=== PATIENT | male | born 1975 | race Caucasian/White ===

== ENCOUNTER 2017-11-17 23:02 | Emergency (ER) | payer BC ==
[~2017-11-17] VITALS: Ht 185.4 cm; Wt 172.2 kg
[2017-11-17 23:08] VITALS: BP 152/103
[2017-11-17] MEDS ORDERED: OMEP40CA37 (23:31)
[2017-11-17] MEDS ORDERED: LOSA50TA37 (23:31)
[2017-11-17] MEDS ORDERED: mag hydrox/Alum hydrox/simeth 30ml oral suspension PO ONE (23:40)
[2017-11-17] MEDS ORDERED: ondansetron 4mg rapidly disintigrating tab PO ONE (23:40)
[2017-11-18 00:39] LABS: BASOPHILS # (AUTO) 0.1 X10'3 (0-0.2); BASOPHILS % (AUTO) 0.8 % (0-1); EOSINOPHILS # (AUTO) 0.2 X10'3 (0-0.9); EOSINOPHILS % (AUTO) 1.9 % (0-6); HEMATOCRIT 42.3 % (42.0-52.0); HEMOGLOBIN 14.4 g/dl (14.0-17.9); LYMPHOCYTES # (AUTO) 2.1 X10'3 (1.1-4.8); LYMPHOCYTES % (AUTO) 24.2 % (21-51); MEAN CORPUSCULAR HEMOGLOBIN 28.4 PG (27.0-31.0); MEAN CORPUSCULAR VOLUME 83.4 FL (78-98); MEAN PLATELET VOLUME 7.9 FL (7.4-10.4); MONOCYTES # (AUTO) 0.7 X10'3 (0-0.9); MONOCYTES % (AUTO) 8.2 % (2-12); NEUTROPHILS # (AUTO) 5.6 X10'3 (1.8-7.7); NEUTROPHILS % (AUTO) 64.9 % (42-75); PLATELET COUNT 264 X10'3 (140-440); RED BLOOD COUNT 5.07 X10'6 (4.70-6.10); RED CELL DISTRIBUTION WIDTH 13.1 % (11.5-14.5); WHITE BLOOD COUNT 8.6 X10'3 (4.5-11.0)
[2017-11-18 00:44] LABS: CLARITY,URINE CLEAR (Clear); COLOR,URINE YELLOW (Yellow); GLUCOSE, URINE NEGATIVE (Neg); KETONES,URINE NEGATIVE (Neg); LEUKOCYTE ESTERASE ,URINE NEGATIVE (Neg); NITRITES, URINE NEGATIVE (Neg); OCCULT BLOOD,URINE NEGATIVE (Neg); PH,URINE 6.5 (4.8-8.0); PROTEIN,URINE NEGATIVE (Neg); UROBILINOGEN,URINE 0.2 E.U/dL (0.2-1.0)
[2017-11-18 00:49] LABS: UA COLLECTION TYPE VOIDED
[2017-11-18 00:53] LABS: ALANINE AMINOTRANSFERASE 58 U/L (12-78); ALBUMIN 3.8 G/DL (3.4-5.0); ALKALINE PHOSPHATASE 94 IU/L (46-116); ANION GAP 6 (8-16); ASPARTATE AMINO TRANSFERASE 32 U/L (10-37); BILIRUBIN,TOTAL 0.4 MG/DL (0.1-1.0); BLOOD UREA NITROGEN 14 MG/DL (7-18); BUN/CREATININE RATIO 15.2 (5.4-32.0); CALCIUM 8.6 MG/DL (8.5-10.1); CHLORIDE 101 MMOL/L (99-107); CREATININE 0.92 MG/DL (0.60-1.10); GLUCOSE 98 MG/DL (70-104); POTASSIUM 3.7 MMOL/L (3.5-5.1); SODIUM 137 MMOL/L (135-145); TOTAL CARBON DIOXIDE 30.3 MMOL/L (24-32); TOTAL PROTEIN 7.7 G/DL (6.4-8.2); eGFR 89 ML/MIN
[2017-11-18 00:56] LABS: LIPASE 153 U/L (73-393); TROPONIN I < 0.04 NG/ML (0.0-0.05)
[2017-11-18] MEDS ORDERED: PANT-47 PO (01:08)
[2017-11-18] MEDS ORDERED: famotidine 20mg tablet PO ONE (01:10)
[2017-11-18] MEDS ORDERED: pantoprazole 40mg Tablet.DR PO ONE (01:10)
== END 2017-11-18 01:23 | disposition home or self-care (01) ==
LOC: ER 23:04
DX: R10.9 Unspecified abdominal pain (principal); E78.00 Pure hypercholesterolemia, unspecified; Z86.73 Personal history of transient ischemic attack (TIA), and cerebral infarction without residual deficits; Z87.891 Personal history of nicotine dependence; Z79.899 Other long term (current) drug therapy
CPT/HCPCS: 36415; 80053; 81003; 83690; 84484; 85025; 99284

== ENCOUNTER 2021-11-11 11:20 | Emergency (ER) | payer BC ==
[~2021-11-11] VITALS: Ht 177.8 cm; Wt 159.1 kg
[~2021-11-11 11:20] MED LIST: LOSA50TA64; OMEP40CA21; PANT-47 PO
[2021-11-11 13:32] LABS: D-DIMER 0.33 MG/L FEU (0-0.50)
[2021-11-11 14:19] VITALS: BP 153/85
== END 2021-11-11 14:20 | disposition home or self-care (01) ==
LOC: ER 11:21
DX: M79.89 Other specified soft tissue disorders (principal); M79.605 Pain in left leg; E78.00 Pure hypercholesterolemia, unspecified; Z79.899 Other long term (current) drug therapy
CPT/HCPCS: 36415; 85379; 99283